=== PATIENT | female | born 1995 | race Caucasian/White ===

== ENCOUNTER 2017-12-22 22:30 | Observation (INO) | payer OTHER ==
[~2017-12-22] VITALS: Ht 152.4 cm; Wt 62.1 kg
[2017-12-22] MEDS ORDERED: TERBUTALINE 1 MG/ML VIAL SUBQ ONE (23:39)
[2017-12-22] MEDS: TERBUTALINE 1 MG/ML VIAL SUBQ SCH (23:41)
[2017-12-23] MEDS: TERBUTALINE 1 MG/ML VIAL SUBQ SCH (00:14)
[2017-12-23] MEDS ORDERED: PNV1TABL8 PO (01:09)
[2017-12-23] MEDS ORDERED: VITA1TAB44 PO (22:44)
== END 2017-12-23 01:15 | disposition home or self-care (01) ==
LOC: MLD 22:30
PROVIDERS: ADMIT Obstetrics & Gynecology; ATTEND Obstetrics & Gynecology
DX: O62.9 Abnormality of forces of labor, unspecified (principal); Z3A.37 37 weeks gestation of pregnancy
CPT/HCPCS: 96372; G0378; J3105

== ENCOUNTER 2017-12-23 10:14 | Inpatient (IN) | payer OTHER ==
[~2017-12-23] VITALS: Ht 152.4 cm; Wt 62.1 kg
[~2017-12-23 10:14] MED LIST: PNV1TABL8 PO
[2017-12-23] MEDS ORDERED: NALBUPHINE 10 MG/ML AMP IM PRN (10:30)
[2017-12-23] MEDS ORDERED: NALBUPHINE 10 MG/ML AMP ONE ×3 (10:47→21:19)
[2017-12-23] MEDS ORDERED: TERBUTALINE 1 MG/ML VIAL SUBQ SCH (11:45)
[2017-12-23] MEDS ORDERED: TERBUTALINE 1 MG/ML VIAL SUBQ ONE ×2 (11:54→12:49)
[2017-12-23] MEDS ORDERED: BETAMETH ACET/BETAMETH NA PH 30 MG/5 ML VIAL IM SCH (13:15)
[2017-12-23] MEDS ORDERED: NIFEdipine 10 MG CAPLF PO SCH ×3 (13:15→20:00)
[2017-12-23] MEDS ORDERED: NIFEdipine 10 MG CAPLF ONE ×4 (13:38→19:47)
[2017-12-23] MEDS ORDERED: AMPICILLIN 2,000 MG VIAL ONE ×2 (13:47→18:21)
[2017-12-23] MEDS ORDERED: AMPICILLIN 2,000 MG in NACL 0.9% 100 ML IV SCH (14:00)
[2017-12-23] MEDS ORDERED: BETAMETH ACET/BETAMETH NA PH 30 MG/5 ML VIAL IM ONE (14:08)
[2017-12-23 14:45] LABS: BASOPHILS % (AUTO) 0.1 % (0.0-2.0); HEMOGLOBIN 11.9 g/dL (12.0-16.0); LYMPHOCYTES % (AUTO) 7.7 % (20.5-51.1); MEAN CORPUSCULAR HEMOGLOBIN 29 pg (27-31); MEAN CORPUSCULAR HGB CONC 33 g/dL (33-37); MEAN CORPUSCULAR VOLUME 87.5 fL (80-94); MONOCYTES # (AUTO) 0.7 K/uL (0.8-1.0); MONOCYTES % (AUTO) 5.2 % (1.7-9.3); PLATELET COUNT (AUTO) 214 K/uL (140-450); RED BLOOD CELL COUNT(AUTO) 4.12 MIL/uL (4.20-5.40); WHITE BLOOD COUNT (AUTO) 12.6 K/uL (4.8-10.8)
[2017-12-23 15:12] LABS: APPEARANCE,URINE CLEAR (CLEAR); BILIRUBIN,URINE NEGATIVE (NEGATIVE); BLOOD, URINE 2+ (NEGATIVE); COLOR,URINE YELLOW (YELLOW); LEUKOCYTE ESTERASE ,URINE NEGATIVE (NEGATIVE); NITRITE, URINE NEGATIVE (NEGATIVE); PH,URINE 6.5 (5.0-9.0); UGLUCOSE NEGATIVE (NEGATIVE)
[2017-12-23 15:39] LABS: RBC,URINE 20-50 /HPF (0-5); WBC,URINE 0-5 (RARE) /HPF (0-5)
[2017-12-23 16:06] LABS: BARBITURATE, URINE NEG. ng/ml (NEG <=200); BENZODIAZEPINE, URINE NEG. ng/mL (NEG <=200); CANNABINOID, URINE NEG. ng/mL (NEG <=50); COCAINE, URINE NEG. ng/mL (NEG <=300); OPIATE, URINE NEG. ng/mL (NEG <=2000); PHENCYCLIDINE SCREEN,URINE NEG. ng/mL (NEG <=25)
[2017-12-23] MEDS ORDERED: NALBUPHINE 10 MG/ML AMP IVP PRN (19:40)
[2017-12-23] MEDS: LACTATED RINGERS 1,000 ML IV SCH (21:27)
[2017-12-23] MEDS ORDERED: BUPIVACAINE 0.125%/NS PREMIX 250 ML ONE (21:47)
[2017-12-23] MEDS ORDERED: BUPIVACAINE 0.125%/NS PREMIX 250 ML EPI SCH (22:05)
[2017-12-23] MEDS ORDERED: AMPICILLIN 1,000 MG VIAL ONE (22:14)
[2017-12-23] MEDS: AMPICILLIN 1,000 MG in NACL 0.9% 50 ML IV SCH (22:14)
[2017-12-23] MEDS ORDERED: VITA1TAB44 PO (22:44)
[2017-12-23] MEDS ORDERED: PROMETHAZINE 25 MG/ML VIAL IVP PRN (22:45)
[2017-12-23] MEDS ORDERED: OXYTOCIN 10 UNITS/ML VIAL IM SCH (22:45)
[2017-12-23] MEDS ORDERED: METHYLERGONOVINE 0.2 MG/ML AMP IM PRN (22:45)
[2017-12-23] MEDS ORDERED: CARBOPROST 250 MCG/ML AMP IM PRN (22:45)
[2017-12-24] MEDS: LACTATED RINGERS 1,000 ML IV SCH ×3 (00:29→20:09)
[2017-12-24] MEDS ORDERED: BETAMETH ACET/BETAMETH NA PH 30 MG/5 ML VIAL IM ONE (02:01)
[2017-12-24] MEDS ORDERED: AMPICILLIN 1,000 MG VIAL ONE ×5 (02:01→17:53)
[2017-12-24] MEDS ORDERED: BETAMETH ACET/BETAMETH NA PH 30 MG/5 ML VIAL IM SCH ×2 (02:10)
[2017-12-24] MEDS: AMPICILLIN 1,000 MG in NACL 0.9% 50 ML IV SCH ×5 (02:15→17:54)
[2017-12-24] MEDS ORDERED: OXYTOCIN 20 UNITS in LACTATED RINGERS 1,000 ML IV SCH (03:40)
[2017-12-24] MEDS ORDERED: NALBUPHINE 10 MG/ML AMP IVP PRN (04:05)
--- NOTE | 2017-12-24 09:16 | NUR ---
PATIENT HAS BEEN SCREENED AND CATEGORIZED LOW NUTRITION RISK. PATIENT WILL BE SEEN WITHIN 7 DAYS OF ADMISSION. 12/30/[address]
[2017-12-24] MEDS ORDERED: OXYTOCIN 10 UNITS/ML VIAL ONE (16:00)
[2017-12-24] MEDS ORDERED: BENZOCAINE/MENTHOL 20%-0.5% 60 GM CAN TP PRN (20:35)
[2017-12-24] MEDS ORDERED: TEMAZEPAM 15 MG CAP PO PRN (20:35)
[2017-12-24] MEDS ORDERED: OXYTOCIN 10 UNITS/ML VIAL IM PRN (20:35)
[2017-12-24] MEDS ORDERED: MEASLES, MUMPS, AND RUBELLA 1 VIAL SQVAC PRN (20:35)
[2017-12-24] MEDS ORDERED: METHYLERGONOVINE 0.2 MG/ML AMP IM PRN (20:35)
[2017-12-24] MEDS ORDERED: DOCUSATE SOD/SENNA 50/8.6 MG 1 TAB PO SCH (21:00)
[2017-12-24] MEDS ORDERED: IBUPROFEN 800 MG TAB ONE (22:13)
[2017-12-24] MEDS: IBUPROFEN 800 MG TAB PO PRN (22:19)
[2017-12-25] MEDS: oxyCODONE/APAP 5/325 MG 1 TAB TAB PO PRN ×3 (03:04→08:23)
[2017-12-25 06:20] LABS: HEMOGLOBIN 9.2 g/dL (12.0-16.0)
[2017-12-25] MEDS: HYDROcodone/APAP 5/325 MG 1 TAB TAB PO PRN ×2 (12:41→17:37)
[2017-12-25] MEDS: FERROUS SULFATE 325 MG TABEC PO SCH (17:38)
[2017-12-25] MEDS: IBUPROFEN 800 MG TAB PO PRN (23:22)
[2017-12-26] MEDS: HYDROcodone/APAP 5/325 MG 1 TAB TAB PO PRN ×2 (08:44→14:46)
[2017-12-26] MEDS: FERROUS SULFATE 325 MG TABEC PO SCH (12:51)
[2017-12-26] MEDS ORDERED: IBUP-2217 PO (13:13)
== END 2017-12-26 16:05 | disposition home or self-care (01) | DRG 560 ==
LOC: MLD 10:14 → OBSVTOIN 13:33 → MFCC 12-24 22:50
PROVIDERS: ADMIT Obstetrics & Gynecology; ATTEND Obstetrics & Gynecology
PROC: 3E0S3BZ Introduction of Anesthetic Agent into Epidural Space, Percutaneous Approach (ICD-10-PCS; principal; 2017-12-23)
PROC: 10D07Z6 Extraction of Products of Conception, Vacuum, Via Natural or Artificial Opening (ICD-10-PCS; 2017-12-23)
PROC: 00HU33Z Insertion of Infusion Device into Spinal Canal, Percutaneous Approach (ICD-10-PCS; 2017-12-23)
PROC: 10907ZC Drainage of Amniotic Fluid, Therapeutic from Products of Conception, Via Natural or Artificial Opening (ICD-10-PCS; 2017-12-23)
PROC: 0W8NXZZ Division of Female Perineum, External Approach (ICD-10-PCS; 2017-12-23)
DX: O66.5 Attempted application of vacuum extractor and forceps (principal); Z87.891 Personal history of nicotine dependence; Z37.0 Single live birth; Z3A.37 37 weeks gestation of pregnancy
CPT/HCPCS: G0378 ×3; 36415; 51702; 76815; 80305; 81001; 85018; 85025; 86592; 86886; 86900; 86901; J0290; J0702; J2300; J2590; J3105; J3490; J7120; Q0092

== ENCOUNTER 2021-11-13 13:50 | Emergency (ER) | payer OTHER ==
[~2021-11-13] VITALS: Ht 152.4 cm; Wt 48.6 kg
[~2021-11-13 13:50] MED LIST changes: +IBUP-2217 PO; +VITA1TAB44 PO
[2021-11-13 13:57] VITALS: BP 110/67
--- NOTE | 2021-11-13 14:10 | NUR ---
PT AMB TO BED 8.
--- NOTE | 2021-11-13 14:25 | NUR ---
PATIENT GIVEN CLEAN GOWN TO CHANGE INTO.
--- NOTE | 2021-11-13 14:26 | NUR ---
26 Y/O FEMALE BIB SELF C/O INTERMITENT RLQ ABD PAIN X 1 WEEK. DENIES DYSURIA/HEMATURIA/TRAUMA/ VAGINAL DISCHARGE. PT DENIES CHEST PAIN/SOB/ FEVER OR CHILLS. LMP 10/07/21. 4 WEEKS.[id number].PT HAS FIRST OB APPT SCHEDULED FOR 12/04/21.PT DENIES MEDICATIONS PRIOR TO ARRIVAL. PT A&O X4. BED IN LOWEST POSITION. PMH: ANXIETY, DEPRESSION MED: NONE NKA
--- NOTE | 2021-11-13 14:26 | NUR ---
26/F BIB SELF, A&OX4, AMBULATORY W/ STEADY GAIT; PRESENTS TO ED WITH C/O RIGHT SUPRAPUBIC PAIN X2 WEEKS. PATIENT DESCRIBES PAIN INTERMITTENT, NON RADIATING, "SORE & CRAMPING." PATIENT DENIES USE OF PAIN MEDICATIONS. [id number], DENIES SOB, CP, N/V/D, DYSURIA, HEMATURIA. PMH: NATURAL MEDS: DENIES NKA
--- NOTE | 2021-11-13 14:36 | NUR ---
LAB AT PT BEDSIDE
[2021-11-13 14:57] LABS: BASOPHILS % (AUTO) 0.4 % (0.0-2.0); EOSINOPHILS # (AUTO) 0.1 K/uL (0-0.4); EOSINOPHILS % (AUTO) 0.9 % (0.0-4.0); HEMATOCRIT 38.7 % (36-48); LYMPHOCYTES # (AUTO) 2.2 K/uL (2.5-16.5); LYMPHOCYTES % (AUTO) 32.7 % (20.5-51.1); MEAN CORPUSCULAR HEMOGLOBIN 29 pg (27-31); MEAN CORPUSCULAR HGB CONC 34 g/dL (33-37); MEAN CORPUSCULAR VOLUME 86.9 fL (80-94); MONOCYTES # (AUTO) 0.4 K/uL (0.8-1.0); MONOCYTES % (AUTO) 6.6 % (1.7-9.3); NEUTROPHILS % (AUTO) 59.4 % (42.2-75.2); PLATELET COUNT (AUTO) 289 K/uL (140-450); RED BLOOD CELL COUNT(AUTO) 4.46 MIL/uL (4.20-5.40); RED CELL DISTRIBUTION WIDTH 12.7 % (11.6-13.7); WHITE BLOOD COUNT (AUTO) 6.8 K/uL (4.8-10.8)
[2021-11-13 15:05] LABS: APPEARANCE,URINE CLEAR (CLEAR); BILIRUBIN,URINE NEGATIVE (NEGATIVE); BLOOD, URINE NEGATIVE (NEGATIVE); COLOR,URINE YELLOW (YELLOW); LEUKOCYTE ESTERASE ,URINE NEGATIVE (NEGATIVE); NITRITE, URINE NEGATIVE (NEGATIVE); UGLUCOSE NEGATIVE (NEGATIVE)
--- NOTE | 2021-11-13 15:20 | NUR ---
US AT PT BEDSIDE
[2021-11-13 16:28] VITALS: BP 109/61
--- NOTE | 2021-11-13 16:30 | NUR ---
Patient discharged with v/s stable. Written and verbal after care instructions given and explained. Patient alert, oriented and verbalized understanding of instructions. Ambulatory with steady gait. All questions addressed prior to discharge. ID band removed. Patient advised to follow up with PMD.Patient educated on indication of medication including possible reaction and side effects. Opportunity to ask questions provided and answered.
== END 2021-11-13 16:30 | disposition home or self-care (01) ==
LOC: MED 13:50
DX: O26.891 Other specified pregnancy related conditions, first trimester (principal); R10.31 Right lower quadrant pain; Z3A.01 Less than 8 weeks gestation of pregnancy; Z79.899 Other long term (current) drug therapy; Z79.1 Long term (current) use of non-steroidal anti-inflammatories (NSAID); Z98.890 Other specified postprocedural states
CPT/HCPCS: 36415; 76705; 76817; 81003; 81025; 84702; 85025; 86592; 86900; 86901; 87491; 99284; Q0092